=== PATIENT | male | born 1990 | race Caucasian/White ===

== ENCOUNTER 2018-10-29 22:51 | Emergency (ER) | payer OTHER ==
[2018-10-29 23:29] LABS: CHLORIDE,CL 104 mEq/L (98-106); SODIUM,NA 139 mEq/L (136-145)
--- NOTE | 2018-10-29 23:42 | EDM.PDOC ---
ED HPI GENERAL MEDICAL PROBLEM - General Chief Complaint: General Stated Complaint: chest pain Time Seen by Provider: 10/29/18 23:40 Source of Information: Reports: Patient History Limitations: Reports: No Limitations - History of Present Illness INITIAL COMMENTS - FREE TEXT/NARRATIVE: This patient is a 28 year old male that presents to the ER with father at bedside. Patient reports that over the past couple of months experiencing left upper chest pain. He reports the pain over the last week has become more consistent and constant. Patient reports that nothing makes the pain better or worse. Patient reports that he also has had headaches, that he does not associate with his chest pain. He was seen in [facility] ER for headache, had head ct that was normal and given Toradol that helped his headache. Patient reports that his pain in the left upper chest radiates downward across the chest to the right lower chest. Patient reports the left upper chest pain radiates to the top portion of his left arm. Patient denies any injury. Patient reports at times it feels like his heart is beating out of his chest or irregular at times. No specific actions or times for this palpitation sensation. The patient also reports that on October 13 he had his right upper tooth pulled. He reports no complications, pain, fever, tenderness, from his tooth being pulled. The patient also reports feeling generally fatigue and malaise. The patient does report a history of passing out in the shower in the past, seen, had echocardiogram that showed mild valve regurgitation. Onset Date: 10/22/18 Duration: Week(s): (worse and more consistent the last 1 week.), Other (Began months ago, but has become more constant and consistent the past 1 week.) Location: Reports: Chest Front/Back Body Image: 1 - pain. Nontender 2 - radiation. nontender. 3 - radiation. nontender Severity: Mild Improves with: Reports: None Worsens with: Reports: None Associated Symptoms: Reports: Chest Pain. Denies: Cough, cough w sputum, Diaphoresis, Fever/Chills, Headaches, Loss of Appetite, Malaise, Nausea/Vomiting , Rash, Seizure, Shortness of Breath, Syncope, Weakness Left Middle Chest Pain Score (Numeric/FACES): 3 - Related Data Allergies Allergy/AdvReac Type Severity Reaction Status Date / Time erythromycin base Allergy Cannot Verified 10/29/18 23:34 Remember Penicillins Allergy Cannot Verified 10/29/18 23:34 Remember Home Meds: Home Meds . [No Known Home Meds] 10/29/18 [History] Past Medical History - Past Health History Medical/Surgical History: Denies Medical/Surgical History Social & Family History - Family History Family Medical History: Noncontributory - Tobacco Use Smoking Status *Q: Never Smoker Second Hand Smoke Exposure: Yes ED ROS GENERAL - Review of Systems Review Of Systems: See Below Constitutional: Reports: Malaise, Fatigue HEENT: Reports: No Symptoms Respiratory: Reports: No Symptoms. Denies: Shortness of Breath, Wheezing, Pleuritic Chest Pain, Cough, Sputum, Hemoptysis Cardiovascular: Reports: Chest Pain, Palpitations. Denies: Dyspnea on Exertion , Edema, Syncope Endocrine: Reports: No Symptoms GI/Abdominal: Reports: No Symptoms. Denies: Abdominal Pain, Nausea, Vomiting : Reports: No Symptoms Musculoskeletal: Reports: No Symptoms Skin: Reports: No Symptoms Neurological: Reports: Headache (not current headache at this time. ). Denies: Confusion, Seizure, Syncope, Trouble Speaking, Difficulty Walking, Change in Speech, Gait Disturbance Psychiatric: Reports: No Symptoms Hematologic/Lymphatic: Reports: No Symptoms Immunologic: Reports: No Symptoms ED EXAM, GENERAL - Physical Exam Exam: See Below Exam Limited By: No Limitations General Appearance: Alert, WD/WN, No Apparent Distress, Thin (very tall, thin, long arms, long legs. ) Eye Exam: Bilateral Eye: Normal Inspection, PERRL Ears: Normal External Exam, Normal Canal, Hearing Grossly Normal, Normal TMs Ear Exam: Bilateral Ear: Auricle Normal, Canal Normal, TM normal Nose: Normal Inspection, Normal Mucosa, No Blood Throat/Mouth: Normal Inspection, Normal Lips, Normal Teeth, Normal Gums, Normal Oropharynx, Normal Voice, No Airway Compromise, Other (location of tooth pulled. no redness, no drainage, no pus, no evidence of infection. No trismus.) Head: Atraumatic, Normocephalic Neck: Normal Inspection, Supple, Non-Tender, Full Range of Motion Respiratory/Chest: No Respiratory Distress, Lungs Clear, Normal Breath Sounds, No Accessory Muscle Use, Chest Non-Tender Cardiovascular: Normal Peripheral Pulses, Regular Rate, Rhythm, No Edema, No Gallop, No JVD, No Murmur, No Rub Peripheral Pulses: 2+: Radial (L), Radial (R), Posterior Tibial (L), Posterior Tibial (R) GI/Abdominal: Soft, Non-Tender, No Organomegaly, No Distention, No Mass, Pelvis Stable (Male) Exam: Deferred Rectal (Males) Exam: Deferred Back Exam: Normal Inspection, Full Range of Motion Extremities: Normal Inspection, Normal Range of Motion, Non-Tender, No Pedal Edema, Normal Capillary Refill Neurological: Alert, Oriented, Normal Cognition, Normal Gait, No Motor/Sensory Deficits Psychiatric: Normal Affect, Normal Mood Skin Exam: Warm, Dry, Intact, Normal Color, No Rash Lymphatic: No Adenopathy EKG INTERPRETATION EKG Date: 10/29/18 Time: 23:01 Rhythm: NSR ST-T: Normal Comparison: NA - No Prior EKG Course - Vital Signs Last Recorded V/S: Last Vital Signs Temp 97.6 F 10/29/18 23:12 Pulse 71 10/29/18 23:12 Resp 18 10/29/18 23:12 BP 150/85 H 10/29/18 23:12 Pulse Ox 98 10/29/18 23:12 - Orders/Labs/Meds Orders: Active Orders 24 hr Category Date Time Status EKG Documentation Completion [RC] STAT Care 10/29/18 23:06 Active Chest 2V [CR] Stat Exams 10/29/18 23:06 Taken Labs: Laboratory Tests 10/29/18 10/29/18 10/29/18 Range/Units 23:08 23:08 23:08 WBC 5.7 (5.0-10.0) 10^3/uL RBC 4.49 L (4.50-6.00) 10^6/uL Hgb 13.5 L (14.0-18.0) g/dL Hct 38.9 L (40.0-54.0) % MCV 86.6 (82.0-94.0) fL MCH 30.1 (27.0-32.0) pg MCHC 34.7 (33.0-38.0) g/dL RDW Coeff of Rosalind 12.5 (11.0-15.0) % Plt Count 236 (150-400) 10^3/uL Neut % (Auto) 50.3 (35-85) % Lymph % (Auto) 36.8 (10-55) % [place] % (Auto) 10.3 (0-16) % Eos % (Auto) 2.1 (0-5) % Baso % (Auto) 0.5 (0-3) % Neut # (Auto) 2.84 (1.80-7.00) 10^3/uL Lymph # (Auto) 2.08 (1.00-4.80) 10^3/uL [place] # (Auto) 0.58 (0.00-0.80) 10^3/uL Eos # (Auto) 0.12 (0.00-0.45) 10^3/uL Baso # (Auto) 0.03 10^3/uL PT 10.4 (9.7-12.3) SEC INR 1.01 (0.92-1.18) APTT 27.1 (23.2-32.3) SEC D-Dimer, Quantitative (0.00-0.50) Sodium 139 (136-145) mEq/L Potassium 4.0 (3.5-5.0) mEq/L Chloride 104 (98-106) mEq/L Carbon Dioxide 30 (21-32) mmol/L BUN 21 H (7-18) mg/dL Creatinine 1.0 (0.7-1.3) mg/dL Est Cr Clr Drug Dosing 116.42 mL/min Estimated GFR (MDRD) > 60 (>=60) mL/min Glucose 96 (75-99) mg/dL Calcium 9.0 (8.4-10.1) mg/dL Lactate Dehydrogenase 119 (100-190) U/L Creatine Kinase 63 (35-232) U/L Troponin I < 0.017 (0.00-0.06) ng/mL TSH, Ultra Sensitive (0.36-5.60) uIU/mL 10/29/18 10/29/18 Range/Units 23:08 23:08 WBC (5.0-10.0) 10^3/uL RBC (4.50-6.00) 10^6/uL Hgb (14.0-18.0) g/dL Hct (40.0-54.0) % MCV (82.0-94.0) fL MCH (27.0-32.0) pg MCHC (33.0-38.0) g/dL RDW Coeff of Rosalind (11.0-15.0) % Plt Count (150-400) 10^3/uL Neut % (Auto) (35-85) % Lymph % (Auto) (10-55) % [place] % (Auto) (0-16) % Eos % (Auto) (0-5) % Baso % (Auto) (0-3) % Neut # (Auto) (1.80-7.00) 10^3/uL Lymph # (Auto) (1.00-4.80) 10^3/uL [place] # (Auto) (0.00-0.80) 10^3/uL Eos # (Auto) (0.00-0.45) 10^3/uL Baso # (Auto) 10^3/uL PT (9.7-12.3) SEC INR (0.92-1.18) APTT (23.2-32.3) SEC D-Dimer, Quantitative < 0.19 (0.00-0.50) Sodium (136-145) mEq/L Potassium (3.5-5.0) mEq/L Chloride (98-106) mEq/L Carbon Dioxide (21-32) mmol/L BUN (7-18) mg/dL Creatinine (0.7-1.3) mg/dL Est Cr Clr Drug Dosing mL/min Estimated GFR (MDRD) (>=60) mL/min Glucose (75-99) mg/dL Calcium (8.4-10.1) mg/dL Lactate Dehydrogenase (100-190) U/L Creatine Kinase (35-232) U/L Troponin I (0.00-0.06) ng/mL TSH, Ultra Sensitive 2.50 (0.36-5.60) uIU/mL - Radiology Interpretation Free Text/Narrative:: CXR: No infiltrates. No cardiac enlargement. Read by me. Radiologist to review. Departure - Departure Time of Disposition: 23:56 Disposition: Home, Self-Care 01 Condition: Good Clinical Impression: Chest pain, atypical - Discharge Information *PRESCRIPTION DRUG MONITORING PROGRAM REVIEWED*: Not Applicable *COPY OF PRESCRIPTION DRUG MONITORING REPORT IN PATIENT RHETT: Not Applicable Instructions: Nonspecific Chest Pain Forms: ED Department Discharge Additional Instructions: Followup with your primary care provider as scheduled Return to the ER for worsening of condition or any emergent concerns - My Orders Last 24 Hours: My Active Orders 10/29/18 23:06 EKG Documentation Completion [RC] STAT Chest 2V [CR] Stat - Assessment/Plan Last 24 Hours: My Active Orders 10/29/18 23:06 EKG Documentation Completion [RC] STAT Chest 2V [CR] Stat Plan: PLEASE SEE RN NOTE FOR PFSH.
== END 2018-10-30 00:14 | disposition home or self-care (01) ==
LOC: CC.ED 22:51
DX: R07.89 Other chest pain (principal); Z88.1 Allergy status to other antibiotic agents; Z88.0 Allergy status to penicillin; Z79.899 Other long term (current) drug therapy; Z77.22 Contact with and (suspected) exposure to environmental tobacco smoke (acute) (chronic)
CPT/HCPCS: 36415; 71046; 80048; 82550; 83615; 84443; 84484; 85025; 85379; 85610; 85730; 93005; 99285-25